=== PATIENT | female | born 1960 | race Caucasian/White ===

== ENCOUNTER 2022-03-30 20:25 | Emergency (ER) | payer SELFPAY ==
[~2022-03-30] VITALS: Ht 152.4 cm; Wt 80.0 kg
[2022-03-30 20:39] VITALS: BP 140/82
== END 2022-03-31 00:18 | disposition left against medical advice (07) ==
LOC: ER 20:25
DX: Z53.21 Procedure and treatment not carried out due to patient leaving prior to being seen by health care provider (principal)